=== PATIENT | male | born 1995 | race Hispanic/Latino ===

== ENCOUNTER 2024-03-20 01:18 | Emergency (ER) | payer SELFPAY ==
[2024-03-20] MEDS ORDERED: Ibuprofen 200 MG TAB ONE (01:24)
== END 2024-03-20 02:15 | disposition home or self-care (01) ==
LOC: ERS 01:18
DX: S60.032A Contusion of left middle finger without damage to nail, initial encounter (principal); W00.0XXA Fall on same level due to ice and snow, initial encounter
CPT/HCPCS: 99283